=== PATIENT | male | born 1980 | race African-American/Black ===

== ENCOUNTER 2018-11-23 09:25 | Emergency (ER) | payer MEDICAID ==
[2018-11-23] MEDS ORDERED: FENTANYL CITRATE INJ/PF 100 MCG/2 ML AMPUL IV ONE (09:46)
--- NOTE | 2018-11-23 09:51 | ER Document Report ---
ED Medical Screen (RME) - General Chief Complaint: Abscess Stated Complaint: POSSIBLE ABSCESS Time Seen by Provider: 11/23/18 09:41 Primary Care Provider: LEANA VARGAS [Primary Care Provider] - Follow up as needed Notes: RAPID MEDICAL EVALUATION DISCLOSURE I have seen this patient as part of a Rapid Medical Evaluation and, if applicable, placed any initially appropriate orders. The patient will be seen and fully evaluated, including a full history and physical exam, by a provider (in Main ED or Fast Track) when a room becomes available. 38-year-old male who with complaints of a bump on the right side of his face that has been there "many years" however has progressively worsened in size over the past few days. He has had some yellowish discharge after he "popped it". He has had some subjective fevers as well. He has required incision and drainage of this lesion many years ago while he was in [place]. EXAM 3 x 3 cm area of fluctuance with mild induration overlying the right lateral maxillary region Moderately tachycardic, 120s TRAVEL OUTSIDE OF THE [place] IN LAST 30 DAYS: No - Related Data Allergies/Adverse Reactions: No Known Allergies Allergy (Verified 11/23/18 09:26) Physical Exam - Vital signs Vitals: Temp Pulse Resp BP Pulse Ox 99.0 F 120 H 18 145/92 H 96 11/23/18 09:29 11/23/18 09:29 11/23/18 09:29 11/23/18 09:29 11/23/18 09:29 Course - Vital Signs Vital signs: Temp Pulse Resp BP Pulse Ox 99.0 F 120 H 18 145/92 H 96 11/23/18 09:29 11/23/18 09:29 11/23/18 09:29 11/23/18 09:29 11/23/18 09:29 Doctor's Discharge - Discharge Referrals: LEANA VARGAS [Primary Care Provider] - Follow up as needed
[2018-11-23] MEDS ORDERED: LIDOCAINE 1%/EPINEPHRINE INJ 20 ML VIAL INJ ONE (10:48)
--- NOTE | 2018-11-23 10:52 | ER Document Report ---
ED Skin Rash/Insect Bite/Abscs - General Chief Complaint: Abscess Stated Complaint: POSSIBLE ABSCESS Time Seen by Provider: 11/23/18 09:41 Primary Care Provider: LEANA VARGAS [NO LOCAL MD] - Follow up as needed Information source: Patient Notes: 40-year-old male with past medical history as recorded including autism as well as diabetes on metformin who presents today with some swelling to the right side of his face starting around 2-3 days ago. Patient supposedly has had an abscess to this facial region before with an incision and drainage around 4 years ago. Patient denies any fevers, vomiting, or diarrhea. Mom has not checked his blood sugar for around 3 days. TRAVEL OUTSIDE OF THE [place] IN LAST 30 DAYS: No - Related Data Allergies/Adverse Reactions: No Known Allergies Allergy (Verified 11/23/18 09:26) Past Medical History - Social History Smoking Status: Current Every Day Smoker Family History: Reviewed & Not Pertinent Patient has suicidal ideation: No Patient has homicidal ideation: No - Past Medical History Cardiac Medical History: Reports: Hx Hypercholesterolemia, Hx Hypertension Endocrine Medical History: Reports: Hx Diabetes Mellitus Type 2 Renal/ Medical History: Denies: Hx Peritoneal Dialysis Physical Exam - Vital signs Vitals: Temp Pulse Resp BP Pulse Ox 99.0 F 120 H 18 145/92 H 96 11/23/18 09:29 11/23/18 09:29 11/23/18 09:29 11/23/18 09:29 11/23/18 09:29 Interpretation: Normal Notes: Reviewed vital signs and nursing note as charted by RN. CONSTITUTIONAL: Alert and oriented and responds appropriately to questions. Well-appearing; well-nourished HEAD: Normocephalic; atraumatic EYES: PERRL; Conjunctivae clear, sclerae non-icteric ENT: Patient has a round swollen slightly tender and fluctuant region around the right lateral cheek. There is no obvious intraoral lesions present. There is no surrounding facial cellulitis NECK: Supple without meningismus; no erythema or fullness anteriorly; non-tender ; no cervical lymphadenopathy, no masses CARD: Tachycardic and regular with a heart rate currently of 101; no murmurs; symmetric distal pulses SKIN: No acute lesions noted NEURO: CN 2-12 intact PSYCH: The patient's mood and manner are appropriate. Grooming and personal hygiene are appropriate. Course - Re-evaluation Re-evalutation: 11/23/18 10:51 Given the history and physical examination, we will attempt to perform a bedside incision and drainage of the small abscess/infected cyst site. Given that the patient had a lesion to the same exact region previously, with mom believing they were told that it was an infectious cyst, I will attempt to evacuate this cystic-like lesion and start the patient on a course of antibiotics with strict return precautions and follow-up with the primary care physician. Temperature 99.0. Heart rate is currently 101. There does not appear to be any intraoral extension or extension into the neck. 11/23/18 11:36 I have performed a bedside incision and drainage with copious drainage. I have sent cultures. 11/23/18 11:46 Patient has refused all blood draws. Blood pressure stable. Heart rate is currently 94. Patient will take the antibiotics as prescribed. He will allow me to perform an Accu-Chek. Mom has been unable to convince the patient to obtain blood draw. I do not believe restraining the patient on order to obtain blood draws necessary at this moment. If the Accu-Chek is not excessively high, we will start the patient on Bactrim with strict return precautions and 48-hour follow-up. - Vital Signs Vital signs: Temp Pulse Resp BP Pulse Ox 99.0 F 120 H 18 145/92 H 96 11/23/18 09:29 11/23/18 09:29 11/23/18 09:29 11/23/18 09:29 11/23/18 09:29 Procedures - Incision and Drainage Right Face Type: Simple, Single Anesthetic type: 1% Lidocaine w/epi Blade size: 11 I&D procedure: Chlorprep applied Incision Method: Incision made by scalpel Discharge - Discharge Clinical Impression: Facial abscess Condition: Good Disposition: HOME, SELF-CARE Instructions: Trimethoprim-Sulfa ([facility]), Post Incision and Drainage, Abscess ([facility]) Additional Instructions: Come back immediately for any facial swelling, redness, vomiting, fever, or any other acute problems. Please make sure that you check the patient's blood sugar often as we have discussed and make sure that he takes the antibiotics twice daily as prescribed. Please follow-up in 48 hours for an abscess recheck. Prescriptions: Sulfamethoxazole/Trimethoprim [Bactrim Ds Tablet] 1 each PO BID #20 tablet Referrals: LOCALMD,NO [NO LOCAL MD] - Follow up as needed
[2018-11-23] MEDS ORDERED: BACITRACIN ZINC OINTMENT 15 GM TP ONE (11:32)
[2018-11-23] MEDS ORDERED: SULFAMETHOXAZOLE/TRIMETHOPRIM 800-160 MG TABLET PO ONE (11:45)
[2018-11-23 12:09] VITALS: BP 139/104
== END 2018-11-23 12:09 | disposition home or self-care (01) ==
LOC: ER 09:25
DX: L02.01 Cutaneous abscess of face (principal); E11.9 Type 2 diabetes mellitus without complications; Z79.84 Long term (current) use of oral hypoglycemic drugs; F17.200 Nicotine dependence, unspecified, uncomplicated; I10 Essential (primary) hypertension; R00.0 Tachycardia, unspecified
CPT/HCPCS: 99283; 87070; 87205; 82962; 10060; J3490 ×2

== ENCOUNTER 2018-12-07 09:39 | Emergency (ER) | payer MEDICAID ==
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
--- NOTE | 2018-12-07 10:38 | ER Document Report ---
ED General - General Chief Complaint: Psych Problem Stated Complaint: PSYCH EVAL Time Seen by Provider: 12/07/18 09:55 Notes: 38-year-old male to the emergency department chief complaint of schizophrenia. Mother states that he is having worsening outbursts. He is a violent when he gets off of his medications. Has been over a month since he has had his invega shot. Also patient's blood sugar has been elevated. Patient has had more picki ng at his scalp. Biting his fingers as well. Was recently on some antibiotics for nailbiting to his thumb. Currently patient is denying any suicidal ideation or other major symptoms. TRAVEL OUTSIDE OF THE [place] IN LAST 30 DAYS: No - HPI Onset/Duration: Constant Severity: Moderate - Related Data Allergies/Adverse Reactions: No Known Allergies Allergy (Verified 12/07/18 09:53) Past Medical History - General Information source: Patient, Parent - Social History Smoking Status: Current Every Day Smoker Frequency of alcohol use: None Drug Abuse: None Lives with: Family Family History: Reviewed & Not Pertinent Patient has suicidal ideation: No Patient has homicidal ideation: Yes - Past Medical History Cardiac Medical History: Reports: Hx Hypercholesterolemia, Hx Hypertension Pulmonary Medical History: Reports: Hx Asthma Endocrine Medical History: Reports: Hx Diabetes Mellitus Type 2 Renal/ Medical History: Denies: Hx Peritoneal Dialysis Psychiatric Medical History: Reports: Hx Schizophrenia Review of Systems - Review of Systems Notes: Constitutional: denies: Chills, Diaphoresis, Fever, Malaise, Weakness EENT: denies: Eye discharge, Blurred vision, Tearing, Double vision, Nose congestion, Nose discharge, Throat swelling, Mouth pain Cardiovascular: denies: Palpitations, Heart racing, Orthopnea, Dyspnea, Chest pain Respiratory: denies: Cough, Hurts to breathe, Wheezing, Shortness of breath Gastrointestinal: denies: Abdominal pain, Diarrhea, Nausea, Vomiting, Black stools, bright red blood in stool Genitourinary: denies: Burning, Dysuria, Discharge, Frequency, Flank pain, Hemat uria Musculoskeletal: denies: Joint pain, Joint swelling, Muscle pain, Muscle stiffness, back pain Hematologic/Lymphatic: denies: Anemia, Easy bleeding, Easy bruising, Blood clots Neurological/Psychological: denies: Confusion, Dementia, Depression, Loss of consciousness Skin: No lesions, no masses, no skin breakdown, no abscesses Physical Exam - Vital signs Vitals: Temp Pulse Resp BP Pulse Ox 98.4 F 120 H 18 149/89 H 96 12/07/18 09:49 12/07/18 09:49 12/07/18 09:49 12/07/18 09:49 12/07/18 09:49 Interpretation: Tachycardic - General General appearance: Appears well, Alert - HEENT Head: Normocephalic, Atraumatic Eyes: Normal Pupils: PERRL - Respiratory Respiratory status: No respiratory distress Chest status: Nontender Breath sounds: Normal Chest palpation: Normal - Cardiovascular Rhythm: Regular Heart sounds: Normal auscultation Murmur: No - Abdominal Inspection: Normal Distension: No distension Bowel sounds: Normal Tenderness: Nontender Organomegaly: No organomegaly - Back Back: Normal, Nontender - Extremities General upper extremity: Normal inspection, Nontender, Normal color, Normal ROM, Normal temperature General lower extremity: Normal inspection, Nontender, Normal color, Normal ROM, Normal temperature, Normal weight bearing. No: Fariba's sign - Neurological Neuro grossly intact: Yes Cognition: Normal Orientation: AAOx4 Ranjana Coma Scale Eye Opening: Spontaneous Ranjana Coma Scale Verbal: Oriented [place] Coma Scale Motor: Obeys Commands Ranjana Coma Scale Total: 15 Speech: Normal Motor strength normal: LUE, RUE, LLE, RLE Sensory: Normal - Psychological Associated symptoms: Other - Patient has a rather flat affect at this time but is being cooperative. Does not appear to have any acute psychosis. Patient is picking at his scalp. - Skin Skin Temperature: Warm Skin Moisture: Dry Skin Color: Normal, Other - Patient does have some hair loss at the vertex of his scalp that appears to be from hair pulling. Course - Re-evaluation Re-evalutation: 12/07/18 10:59 At this time will try to evaluate him from a mental health perspective. Based on the fact that he has diabetes and reported hyperglycemia will get his blood sugar checked as well. 12/07/18 18:33 Laboratory 12/07/18 12/07/18 12/07/18 11:03 11:03 11:03 WBC 5.1 RBC 5.10 Hgb 14.4 Hct 42.7 MCV 84 MCH 28.2 MCHC 33.7 RDW 15.0 H Plt Count 220 Seg Neutrophils % 56.8 Lymphocytes % 32.3 Monocytes % 9.2 Eosinophils % 0.8 Basophils % 0.9 Absolute Neutrophils 2.9 Absolute Lymphocytes 1.7 Absolute Monocytes 0.5 Absolute Eosinophils 0.0 Absolute Basophils 0.0 VBG pH 7.40 VBG pCO2 46.6 VBG HCO3 28.2 VBG Base Excess 2.6 Sodium 139.1 Potassium 4.3 Chloride 105 Carbon Dioxide 28 Anion Gap 6 BUN 15 Creatinine 0.94 Est GFR ( Amer) > 60 Est GFR (Non-Af Amer) > 60 Glucose 101 Calcium 10.1 Total Bilirubin 0.3 Direct Bilirubin 0.3 Neonat Total Bilirubin Not Reportable Neonat Direct Bilirubin Not Reportable Neonat Indirect Bili Not Reportable AST 22 ALT 19 L Alkaline Phosphatase 79 Total Protein 7.7 Albumin 4.1 Urine Color Urine Appearance Urine pH Ur Specific [place] Urine Protein Urine Glucose (UA) Urine Ketones Urine Blood Urine Nitrite Urine Bilirubin Urine Urobilinogen Ur Leukocyte Esterase Urine WBC (Auto) Urine RBC (Auto) U Hyaline Cast (Auto) Squamous Epi Cells Auto Urine Mucus (Auto) Urine Ascorbic Acid Salicylates < 1.0 L Urine Opiates Screen Urine Methadone Screen Acetaminophen < 10 L Ur Barbiturates Screen Ur Phencyclidine Scrn Ur Amphetamines Screen U Benzodiazepines Scrn Urine Cocaine Screen U Marijuana (THC) Screen Serum Alcohol < 10 12/07/18 12/07/18 13:54 13:54 WBC RBC Hgb Hct MCV MCH MCHC RDW Plt Count Seg Neutrophils % Lymphocytes % Monocytes % Eosinophils % Basophils % Absolute Neutrophils Absolute Lymphocytes Absolute Monocytes Absolute Eosinophils Absolute Basophils VBG pH VBG pCO2 VBG HCO3 VBG Base Excess Sodium Potassium Chloride Carbon Dioxide Anion Gap BUN Creatinine Est GFR ( Amer) Est GFR (Non-Af Amer) Glucose Calcium Total Bilirubin Direct Bilirubin Neonat Total Bilirubin Neonat Direct Bilirubin Neonat Indirect Bili AST ALT Alkaline Phosphatase Total Protein Albumin Urine Color YELLOW Urine Appearance SLIGHTLY-CLOUDY Urine pH 6.0 Ur Specific [place] 1.018 Urine Protein 100 H Urine Glucose (UA) NEGATIVE Urine Ketones TRACE H Urine Blood NEGATIVE Urine Nitrite NEGATIVE Urine Bilirubin NEGATIVE Urine Urobilinogen NEGATIVE Ur Leukocyte Esterase NEGATIVE Urine WBC (Auto) 1 Urine RBC (Auto) 1 U Hyaline Cast (Auto) 2 Squamous Epi Cells Auto <1 Urine Mucus (Auto) RARE Urine Ascorbic Acid NEGATIVE Salicylates Urine Opiates Screen NEGATIVE Urine Methadone Screen NEGATIVE Acetaminophen Ur Barbiturates Screen NEGATIVE Ur Phencyclidine Scrn NEGATIVE Ur Amphetamines Screen NEGATIVE U Benzodiazepines Scrn NEGATIVE Urine Cocaine Screen NEGATIVE U Marijuana (THC) Screen NEGATIVE Serum Alcohol - Vital Signs Vital signs: Temp Pulse Resp BP Pulse Ox 98.4 F 120 H 18 149/89 H 96 12/07/18 09:49 12/07/18 09:49 12/07/18 09:49 12/07/18 09:49 12/07/18 09:49 - Laboratory Result Diagrams: 12/07/18 11:03 12/07/18 11:03 Laboratory results interpreted by me: 12/07/18 12/07/18 12/07/18 11:03 11:03 13:54 RDW 15.0 H ALT 19 L Urine Protein 100 H Urine Ketones TRACE H Salicylates < 1.0 L Acetaminophen < 10 L - EKG Interpretation by Me EKG shows normal: Sinus rhythm, [place], Intervals, QRS Complexes, ST-T Waves Discharge - Discharge Clinical Impression: Schizophrenia Qualifiers: Schizophrenia type: unspecified Qualified Code(s): F20.9 - Schizophrenia, unspecified
[2018-12-07 11:18] LABS: VENOUS BLOOD BASE EXCESS 2.6 mmol/L; VENOUS BLOOD HCO3 28.2 mmol/L (20-32); VENOUS BLOOD PCO2 46.6 mmHg (35-63); VENOUS BLOOD PH 7.4 (7.30-7.42)
[2018-12-07 11:22] LABS: ABSOLUTE LYMPHOCYTES (AUTO) 1.7 10^3/uL (0.5-4.7); ABSOLUTE MONOCYTES (AUTO) 0.5 10^3/uL (0.1-1.4); ABSOLUTE NEUT (AUTO) 2.9 10^3/uL (1.7-8.2); BASOPHILS % (AUTO) 0.9 % (0-2); EOSINOPHILS % (AUTO) 0.8 % (0-6); HEMATOCRIT 42.7 % (37.9-51.0); HEMOGLOBIN 14.4 g/dL (13.5-17.0); LYMPHOCYTES % (AUTO) 32.3 % (13-45); MEAN CORPUSCULAR HEMOGLOBIN 28.2 pg (27.0-33.4); MEAN CORPUSCULAR HGB CONC 33.7 g/dL (32.0-36.0); MEAN CORPUSCULAR VOLUME 84 fl (80-97); MONOCYTES % (AUTO) 9.2 % (3-13); PLATELET COUNT 220 10^3/uL (150-450); SEGMENTED NEUTROPHILS % (AUTO) 56.8 % (42-78); TOTAL CELLS COUNTED % (AUTO) 100 %; WHITE BLOOD COUNT 5.1 10^3/uL (4.0-10.5)
[2018-12-07 11:34] LABS: ALANINE AMINOTRANSFERASE 19 U/L (21-72); ALBUMIN 4.1 g/dL (3.5-5.0); ALKALINE PHOSPHATASE 79 U/L (38-126); ANION GAP 6 (5-19); ASPARTATE AMINO TRANSFERASE 22 U/L (17-59); BILIRUBIN,DIRECT 0.3 mg/dL (0.0-0.4); BILIRUBIN,TOTAL 0.3 mg/dL (0.2-1.3); BLOOD UREA NITROGEN 15 mg/dL (7-20); CALCIUM 10.1 mg/dL (8.4-10.2); CARBON DIOXIDE 28 mmol/L (22-30); CHLORIDE 105 mmol/L (98-107); GLUCOSE 101 mg/dL (75-110); POTASSIUM 4.3 mmol/L (3.6-5.0); SODIUM 139.1 mmol/L (137-145); TOTAL PROTEIN 7.7 g/dL (6.3-8.2)
[2018-12-07 11:36] LABS: ACETAMINOPHEN < 10 ug/mL (10-30); ALCOHOL < 10 mg/dL (NONE DETECTED); SALICYLATE < 1.0 mg/dL (2.0-20.0)
[2018-12-07] MEDS ORDERED: HALOPERIDOL DECANOATE INJ 100 MG/1 ML VIAL IM ONE (11:44)
[2018-12-07] MEDS ORDERED: BENZTROPINE MESYLATE 1 MG TABLET PO ONE (11:44)
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
[2018-12-07 14:22] LABS: URINE AMPHETAMINES SCREEN NEGATIVE; URINE BARBITURATES SCREEN NEGATIVE; URINE BENZODIAZEPINES SCREEN NEGATIVE; URINE COCAINE SCREEN NEGATIVE; URINE MARIJUANA (THC) SCREEN NEGATIVE; URINE METHADONE SCREEN NEGATIVE; URINE PHENCYCLIDINE SCREEN NEGATIVE
[2018-12-07 14:30] LABS: APPEARANCE,URINE SLIGHTLY-CLOUDY; BILIRUBIN,URINE NEGATIVE (NEGATIVE); COLOR,URINE YELLOW; GLUCOSE, URINE NEGATIVE (NEGATIVE); KETONES,URINE TRACE mg/dL (NEGATIVE); LEUKOCYTE ESTERASE,URINE NEGATIVE (NEGATIVE); NITRITE,URINE NEGATIVE (NEGATIVE); PROTEIN,URINE 100 mg/dL (NEGATIVE); URINE SPECIFIC GRAVITY 1.018; UROBILINOGEN,URINE NEGATIVE mg/dL (<2.0)
--- NOTE | 2018-12-07 19:20 | EKG REPORT ---
SEVERITY:- NORMAL ECG - SINUS RHYTHM : Confirmed by: Ave Vallecillo MD 07-Dec-2018 19:19:05
--- NOTE | 2018-12-07 20:30 | ER Document Report ---
Doctor's Note Notes: 12/07/18 20:30 Order for his restraints was renewed. Patient is a high risk for elopement, has tried to leave again several times today. Approximately an hour ago was trialed with one arm out of restraints in order to eat dinner, after he finished eating his dinner he started throwing his food around the room and hitting his food. Still demonstrating high risk behaviors. Patient's restraint order has been renewed.
[2018-12-07] MEDS: HALOPERIDOL 5 MG TABLET PO SCH (21:29)
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
[2018-12-08] MEDS: HALOPERIDOL 5 MG TABLET PO SCH ×2 (09:24→18:40)
[2018-12-08] MEDS ORDERED: HALOPERIDOL LACTATE INJ 5 MG/1 ML VIAL IM ONE (11:51)
[2018-12-08] MEDS ORDERED: CHLORPROMAZINE HCL INJ 25 MG/1 ML AMPULE IM ONE (11:52)
[2018-12-08] MEDS: BENZTROPINE MESYLATE 1 MG TABLET PO SCH (12:40)
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
[2018-12-08] MEDS ORDERED: DIPHENHYDRAMINE HCL 50 MG/ML VIAL IM ONE (20:19)
[2018-12-08] MEDS ORDERED: MIDAZOLAM 2 MG/2 ML INJ IM ONE (20:19)
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
[2018-12-09] MEDS: BENZTROPINE MESYLATE 1 MG TABLET PO SCH (09:29)
[2018-12-09] MEDS: HALOPERIDOL 5 MG TABLET PO SCH ×2 (09:29→17:06)
[2018-12-09] MEDS: CHLORPROMAZINE HCL 50 MG TABLET PO PRN (12:59)
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
--- NOTE | 2018-12-09 20:26 | ER Document Report ---
Doctor's Note Notes: 12/09/18 20:26 Rounds: Chart reviewed and patient interviewed. Patient being evaluated for schizophrenia. Vital signs of all remain normal. Lab studies are unremarkable. Patient appears to be medically stable for transfer or discharge. Altagracia Hermosillo MD
[2018-12-09] MEDS ORDERED: ZIPRASIDONE HCL 20 MG CAPSULE PO ONE (22:31)
[2018-12-09] MEDS ORDERED: LORAZEPAM 1 MG TABLET PO ONE (22:31)
[2018-12-09] MEDS ORDERED: ACETAMINOPHEN 325 MG TABLET PO ONE (23:29)
[2018-12-10] MEDS: HALOPERIDOL 5 MG TABLET PO SCH ×2 (10:05→17:19)
[2018-12-10] MEDS: BENZTROPINE MESYLATE 1 MG TABLET PO SCH (10:05)
--- NOTE | 2018-12-10 10:25 | ER Document Report ---
Doctor's Note Notes: 12/10/18 10:24 Rounds: Chart reviewed and patient interviewed. Patient is being treated for schizophrenia and intellectual disability. Lab studies are all essentially normal. Vital signs are all normal. Patient appears to be medically stable for transfer or discharge. Altagracia Hermosillo MD
--- NOTE | 2018-12-10 16:09 | PSYCHOLOGICAL NOTE ---
Psych Note - Psych Note Date seen by psych provider: 12/10/18 Time seen by psych provider: 16:00 Psych Note: Reason for Consult:off medications with an increase in aggression. 38-year-old male to the emergency department chief complaint of schizophrenia. Mother states that he is having worsening outbursts. He is a violent when he gets off of his medications. Has been over a month since he has had his invega shot. Check-in conducted with patient. Patient reports he does not want to stay the night. Explained to patient that patient's mother identifies as a legal guardian. Patient denies that his mother is his legal guardian however then confirms he remembers going to court. He was unable to explain why he was in court. When discussing the need for him to control his impulses and to not try to leave patient again reports that he wants to leave and cannot spend the night. He again denies that his mom is his legal guardian and now is denying remembering going to court. Clinician was able to get confirmation from the patient that he will attempt to control himself and not try and leave tonight. Medication recommendations per [facility]'s contracted psychiatrist Dr. Dorian MORILLO are as follows Haldol 5 mg twice daily Cogentin 1 mg daily Thorazine 50 mg every 8 hours as needed Diagnosis: 295.90 F20.9 Schizophrenia per history provided by patient's mother Intellectually Disable, per patient's mother Impression\plan: Patient is recommended to continue under IVC. Patient is unable to demonstrate control over his impulses and has no insight to his behaviors. Patient's mother reports that she is the legal guardian of the patient. Behavior health team is still waiting for documentation improve. Chart referral has been submitted. Patient will be re-evaluated. Dr. Valdez was consulted and care management of this patient; attending physicians in agreement with recommendations and disposition.
[2018-12-10] MEDS: CHLORPROMAZINE HCL 50 MG TABLET PO PRN (21:59)
[2018-12-11] MEDS: BENZTROPINE MESYLATE 1 MG TABLET PO SCH (09:04)
[2018-12-11] MEDS: HALOPERIDOL 5 MG TABLET PO SCH ×2 (09:04→17:56)
[2018-12-11] MEDS: CHLORPROMAZINE HCL 50 MG TABLET PO PRN (12:00)
--- NOTE | 2018-12-11 17:08 | ER Document Report ---
Doctor's Note Notes: 12/11/18 17:05 I am quite familiar with this patient, as I did the initial rapid medical evaluation when his mother brought him to the hospital on 12/07/2018. Disposition has been a problem because he has required restraints off and on. Patient was quite agitated again this morning requiring his prn dosing of Thorazine for control. It did help somewhat. Consult has been placed to [facility] for placement. He has to be out of restraints for a certain length of time, fortunately he did not require restraints throughout the day today.
[2018-12-12] MEDS ORDERED: ZIPRASIDONE MESYLATE INJ/PF 20 MG SDV IM ONE (00:32)
[2018-12-12] MEDS: HALOPERIDOL 5 MG TABLET PO SCH (09:19)
[2018-12-12] MEDS: BENZTROPINE MESYLATE 1 MG TABLET PO SCH (09:19)
[2018-12-12] MEDS: CHLORPROMAZINE HCL 50 MG TABLET PO PRN ×2 (09:19)
--- NOTE | 2018-12-12 09:20 | PSYCHOLOGICAL NOTE ---
Psych Note - Psych Note Date seen by psych provider: 12/11/18 Time seen by psych provider: 09:00 Psych Note: Reason for Consult:off medications with an increase in aggression. 38-year-old male to the emergency department chief complaint of schizophrenia. Mother states that he is having worsening outbursts. He is a violent when he gets off of his medications. Has been over a month since he has had his invega shot. Chart review Conducted: Patient was able to go through the night without restraints. He required significant amount of re-direction with noted times of odd outbursts ie laughing and talking in his room, coming out and yelling at staff etc. Patient reports to clinician he will continue to stay and not try to leave. It is noted he will not make eye contact and keeps the blanket pulled up covering his head. Medication recommendations per [facility]'s contracted psychiatrist Dr. Dorian MORILLO are as follows Haldol 5 mg twice daily Cogentin 1 mg daily Thorazine 50 mg every 8 hours as needed Diagnosis: 295.90 F20.9 Schizophrenia per history provided by patient's mother Intellectually Disable, per patient's mother Impression\plan: Patient is recommended to continue under IVC. Patient is unable to demonstrate control over his impulses and has no insight to his behaviors. Patient's mother reports that she is the legal guardian of the patient. Behavior health team is still waiting for documentation improve. [facility] referral has been submitted. Patient will be re-evaluated. Dr. Valdez was consulted and care management of this patient; attending physicians in agreement with recommendations and disposition.
--- NOTE | 2018-12-12 09:23 | PSYCHOLOGICAL NOTE ---
Psych Note - Psych Note Date seen by psych provider: 12/12/18 Time seen by psych provider: 09:00 Psych Note: Reason for Consult:off medications with an increase in aggression. 38-year-old male to the emergency department chief complaint of schizophrenia. Mother states that he is having worsening outbursts. He is a violent when he gets off of his medications. Has been over a month since he has had his invega shot. Clinician spoke with Suzette of [facility]; she is requesting updated vitals and MAR. Clinician FAXED requested information. Suzette confirmed received and provided acceptance. Dr. Adolfo Edmond is accepting doctor, call report to [phone] Medication recommendations per [facility]'s contracted psychiatrist Dr. Dorian MORILLO are as follows Haldol 5 mg twice daily Cogentin 1 mg daily Thorazine 50 mg every 8 hours as needed Diagnosis: 295.90 F20.9 Schizophrenia per history provided by patient's mother Intellectually Disable, per patient's mother Impression\plan: Patient is recommended to continue under IVC. Patient is unable to demonstrate control over his impulses and has no insight to his behaviors. Patient's mother reports that she is the legal guardian of the patient. Behavior health team is still waiting for documentation improve. [facility] has accepted; transportation has been requested. Dr. Valdez was consulted and care management of this patient; attending physicians in agreement with recommendations and disposition.
--- NOTE | 2018-12-12 09:56 | ER Document Report ---
Doctor's Note Notes: 12/12/18 09:56 As the rounding physician this AM, I assessed the patient's labs, vitals, and records. No concerning findings this morning. Patient denies any acute complaints. Patient is cleared for disposition by behavioral health team. Patient was accepted at [facility]. Patient stable upon transfer with law enforcement. 12/12/18 17:52
[2018-12-12 11:40] VITALS: BP 120/65
== END 2018-12-12 11:30 ==
LOC: ER 09:39
DX: F20.9 Schizophrenia, unspecified (principal); E78.00 Pure hypercholesterolemia, unspecified; I10 Essential (primary) hypertension; F17.200 Nicotine dependence, unspecified, uncomplicated; E11.65 Type 2 diabetes mellitus with hyperglycemia; Z78.1 Physical restraint status
CPT/HCPCS: 93005; 99285; 96372; 36415; 80307 ×4; 85025; 80053; 81001; 82803; 93010; J3490 ×17; J2250; J3230; J1631; J1200; J1630; J3486